=== PATIENT | female | born 1995 | race Caucasian/White ===

== ENCOUNTER 2019-11-19 22:22 | Inpatient (IN) | payer MEDICAID, OTHER ==
[~2019-11-19] VITALS: Ht 152.4 cm; Wt 51.3 kg
[~2019-11-19 22:22] MED LIST: IBUP-2070 PO; PRED20 PO; VALA500T42 PO
[2019-11-19] MEDS ORDERED: TRAZ-184 PO (23:06)
[2019-11-19] MEDS ORDERED: DIPH25CA85 PO (23:06)
[2019-11-20 00:45] LABS: BASOPHILS % (AUTO) 0.9 % (0.0-2.0); HEMATOCRIT 40.3 % (36-46); HEMOGLOBIN 12.8 g/dL (12.0-16.0); LYMPHOCYTES # (AUTO) 2.2 K/uL (1.0-4.8); LYMPHOCYTES % (AUTO) 26.9 % (22.0-44.0); MEAN CORPUSCULAR HEMOGLOBIN 24.7 pg (26.0-34.0); MEAN CORPUSCULAR HGB CONC 31.8 G/dL (31.0-37.0); MEAN CORPUSCULAR VOLUME 78 fL (80-100); MONOCYTES # (AUTO) 0.5 K/uL (0.1-1.0); MONOCYTES % (AUTO) 5.5 % (2.0-9.0); NEUTROPHILS # (AUTO) 5.3 K/uL (1.8-7.7); NEUTROPHILS % (AUTO) 63.7 % (40.0-70.0); PLATELET COUNT (AUTO) 333 K/uL (150-450); RED BLOOD CELL COUNT(AUTO) 5.19 MIL/uL (4.00-5.20); RED CELL DISTRIBUTION WIDTH 14.3 % (11.5-14.5)
[2019-11-20] MEDS ORDERED: SODIUM CHLORIDE 0.9% 1,000 ML IV ONE (00:45)
[2019-11-20 00:54] LABS: ANION GAP 6 mmol/L (8-16); CALCIUM, TOTAL 8.7 mg/dL (8.8-10.5); CARBON DIOXIDE 30 mmol/L (22-29); CHLORIDE 104 mmol/L (98-107); CREATININE 0.86 mg/dL (0.60-1.30); GLOMERULAR FILTR. RATE CALC > 60 mL/min (>60); GLUCOSE,RANDOM 90 mg/dL (70-110); POTASSIUM 3.6 mmol/L (3.5-5.1); SODIUM SERUM 140 mmol/L (136-145); UREA NITROGEN, BLOOD 9 mg/dL (7-18)
[2019-11-20 01:01] LABS: SALICYLATE 0.5 mg/dL (2.8-20.0)
[2019-11-20 01:06] LABS: ACETAMINOPHEN < 2 mcg/mL (10-30); ALANINE AMINOTRANSFERASE 87 U/L (12-78); ALBUMIN 3.6 g/dL (3.4-5.0); ALKALINE PHOSPHATASE 94 U/L (46-116); ASPARTATE AMINOTRANSFERASE 43 U/L (15-37); BILIRUBIN,TOTAL 0.2 mg/dL (0.1-1.0); HCG,QUANTITATIVE < 1 mIU/mL (0-6); TOTAL PROTEIN, SERUM 7.5 g/dL (6.4-8.2)
[2019-11-20] MEDS ORDERED: ZOLPIDEM TARTRATE 10 MG TABLET PO PRN (05:00)
[2019-11-20] MEDS ORDERED: HALOPERIDOL 5 MG TABLET PO PRN (05:00)
[2019-11-20] MEDS ORDERED: LORazepam 2 MG TABLET PO PRN (05:00)
[2019-11-20] MEDS ORDERED: ACETAMINOPHEN 325 MG TABLET PO PRN (08:00)
[2019-11-20] MEDS ORDERED: ALBUTEROL SULFATE HFA 90 MCG/PUFF 8 GM INHALER IH PRN (08:00)
[2019-11-20] MEDS ORDERED: MAGNESIUM HYDROXIDE SUSPENSION 30 ML UDCUP PO PRN (08:00)
[2019-11-20] MEDS ORDERED: ONDANSETRON HCL 4 MG TABLET PO PRN (08:00)
[2019-11-20] MEDS ORDERED: PETROLATUM,WHITE 28 GM JELLY TP PRN (08:00)
[2019-11-20] MEDS ORDERED: LOPERAMIDE HCL 2 MG CAPSULE PO PRN (08:00)
[2019-11-20] MEDS ORDERED: MAG HYDROX/AL HYDROX/SIMETH ES 30 ML SUSPENSION UDCUP PO PRN (08:00)
[2019-11-20] MEDS ORDERED: CloNIDine HCL 0.1 MG TABLET PO PRN (08:00)
[2019-11-20] MEDS ORDERED: IBUPROFEN 400 MG TABLET PO PRN (08:00)
[2019-11-20] MEDS ORDERED: DOCUSATE SODIUM 100 MG CAPSULE PO PRN (08:00)
[2019-11-20] MEDS ORDERED: NICOTINE 14 MG/24 HOUR PATCH TD PRN (08:00)
[2019-11-20 19:44] VITALS: BP 105/74
[2019-11-20] MEDS: TraZODone HCL 50 MG TABLET PO SCH (20:45)
[2019-11-21 06:40] VITALS: BP 104/62
[2019-11-21 07:00] LABS: CHOL/HDL RATIO 3.6 (3.9-5.7)
[2019-11-21] MEDS: SERTRALINE HCL 100 MG TABLET PO SCH (08:47)
[2019-11-21 08:53] VITALS: BP 107/69
[2019-11-21 16:09] VITALS: BP 115/54
[2019-11-21] MEDS: TraZODone HCL 50 MG TABLET PO SCH (20:12)
[2019-11-22 06:30] VITALS: BP 110/61
[2019-11-22 08:38] VITALS: BP 106/60
[2019-11-22] MEDS: SERTRALINE HCL 100 MG TABLET PO SCH (09:22)
[2019-11-22 17:05] VITALS: BP 105/82
[2019-11-22] MEDS: GuaiFENesin/D-METHORPHAN [SUGAR-FREE] 200-20MG/10 ML SYRUP UDCUP PO PRN (18:17)
[2019-11-22] MEDS: TraZODone HCL 50 MG TABLET PO SCH (21:00)
[2019-11-23 00:20] VITALS: BP 110/80
[2019-11-23] MEDS: GuaiFENesin/D-METHORPHAN [SUGAR-FREE] 200-20MG/10 ML SYRUP UDCUP PO PRN (07:09)
[2019-11-23 08:20] VITALS: BP 122/66
[2019-11-23] MEDS: SERTRALINE HCL 100 MG TABLET PO SCH (08:39)
[2019-11-23] MEDS ORDERED: TRAZ150 PO (12:04)
[2019-11-23] MEDS ORDERED: SERT100T12 PO (12:04)
[2019-11-23 17:47] VITALS: BP 124/77
== END 2019-11-23 18:23 | disposition home or self-care (01) | DRG 752 ==
LOC: EMS 22:23 → B2S 11-20 05:00
PROVIDERS: ADMIT Psychiatry & Neurology Psychiatry; ATTEND Psychiatry & Neurology Child & Adolescent Psychiatry
DX: F60.3 Borderline personality disorder (principal); F32.2 Major depressive disorder, single episode, severe without psychotic features; F19.10 Other psychoactive substance abuse, uncomplicated; F41.9 Anxiety disorder, unspecified; Z62.810 Personal history of physical and sexual abuse in childhood; R45.87 Impulsiveness; T50.992A Poisoning by other drugs, medicaments and biological substances, intentional self-harm, initial encounter; R74.0 Nonspecific elevation of levels of transaminase and lactic acid dehydrogenase [LDH]; Y92.89 Other specified places as the place of occurrence of the external cause; Z79.899 Other long term (current) drug therapy; Z91.040 Latex allergy status; Z71.51 Drug abuse counseling and surveillance of drug abuser
CPT/HCPCS: 51701; 93005; G0480; G0481; J7030

== ENCOUNTER 2019-12-09 21:17 | Inpatient (IN) | payer MEDICAID ==
[~2019-12-09] VITALS: Ht 154.9 cm; Wt 121.7 kg
[~2019-12-09 21:17] MED LIST changes: -IBUP-2070 PO; -PRED20 PO; +SERT100T12 PO; +TRAZ150 PO; -VALA500T42 PO
[2019-12-09] MEDS ORDERED: HALOPERIDOL 5 MG TABLET PO PRN (21:45)
[2019-12-09 22:09] VITALS: BP 98/61
[2019-12-10] VITALS: BP 118/80
[2019-12-10 07:58] LABS: BASOPHILS % (AUTO) 0.4 % (0.0-2.0); EOSINOPHILS % (AUTO) 4.2 % (1.0-6.0); HEMATOCRIT 39.9 % (36-46); HEMOGLOBIN 12.9 g/dL (12.0-16.0); LYMPHOCYTES # (AUTO) 1.5 K/uL (1.0-4.8); LYMPHOCYTES % (AUTO) 18.1 % (22.0-44.0); MEAN CORPUSCULAR HEMOGLOBIN 25.3 pg (26.0-34.0); MEAN CORPUSCULAR HGB CONC 32.4 G/dL (31.0-37.0); MEAN CORPUSCULAR VOLUME 78 fL (80-100); MONOCYTES # (AUTO) 0.4 K/uL (0.1-1.0); MONOCYTES % (AUTO) 5.1 % (2.0-9.0); NEUTROPHILS % (AUTO) 72.2 % (40.0-70.0); PLATELET COUNT (AUTO) 350 K/uL (150-450); RED BLOOD CELL COUNT(AUTO) 5.12 MIL/uL (4.00-5.20); RED CELL DISTRIBUTION WIDTH 14.7 % (11.5-14.5)
[2019-12-10 08:30] VITALS: BP 125/64
[2019-12-10 08:45] LABS: HEMOGLOBIN A1C 6.3 % (3.8-5.6)
[2019-12-10 08:51] LABS: ALANINE AMINOTRANSFERASE 80 U/L (12-78); ALBUMIN 3.4 g/dL (3.4-5.0); ALKALINE PHOSPHATASE 104 U/L (46-116); ANION GAP 8 mmol/L (8-16); ASPARTATE AMINOTRANSFERASE 34 U/L (15-37); BILIRUBIN,TOTAL 0.2 mg/dL (0.1-1.0); CALCIUM, TOTAL 9.4 mg/dL (8.8-10.5); CARBON DIOXIDE 27 mmol/L (22-29); CHLORIDE 104 mmol/L (98-107); CHOL/HDL RATIO 3.8 (3.9-5.7); CHOLESTEROL 139 mg/dL (131-200); CREATININE 0.74 mg/dL (0.60-1.30); FREE T4 (FREE THYROXINE) 1.41 ng/dL (0.76-1.46); GLOMERULAR FILTR. RATE CALC > 60 mL/min (>60); GLUCOSE,RANDOM 106 mg/dL (70-110); HCG,QUANTITATIVE < 1 mIU/mL (0-6); HDL CHOLESTEROL 37 mg/dL (40-60); LDL CHOL (CALC.) 82 mg/dL (0-130); POTASSIUM 3.9 mmol/L (3.5-5.1); SODIUM SERUM 139 mmol/L (136-145); THYROID STIMULATING HORMONE 1.04 uIU/mL (0.36-3.74); TOTAL PROTEIN, SERUM 7.5 g/dL (6.4-8.2); TRIGLYCERIDES 100 mg/dL (15-150); UREA NITROGEN, BLOOD 11 mg/dL (7-18)
[2019-12-10] MEDS: SERTRALINE HCL 100 MG TABLET PO SCH (10:21)
[2019-12-10] MEDS ORDERED: NICOTINE 14 MG/24 HOUR PATCH TD PRN (15:00)
[2019-12-10] MEDS ORDERED: CloNIDine HCL 0.1 MG TABLET PO PRN (15:00)
[2019-12-10] MEDS ORDERED: IBUPROFEN 400 MG TABLET PO PRN (15:00)
[2019-12-10] MEDS ORDERED: MAGNESIUM HYDROXIDE SUSPENSION 30 ML UDCUP PO PRN (15:00)
[2019-12-10] MEDS ORDERED: ONDANSETRON HCL 4 MG TABLET PO PRN (15:00)
[2019-12-10] MEDS ORDERED: ALBUTEROL SULFATE HFA 90 MCG/PUFF 8 GM INHALER IH PRN (15:00)
[2019-12-10] MEDS ORDERED: ACETAMINOPHEN 325 MG TABLET PO PRN (15:00)
[2019-12-10] MEDS ORDERED: GuaiFENesin/D-METHORPHAN [SUGAR-FREE] 200-20MG/10 ML SYRUP UDCUP PO PRN (15:00)
[2019-12-10] MEDS ORDERED: LOPERAMIDE HCL 2 MG CAPSULE PO PRN (15:00)
[2019-12-10] MEDS ORDERED: PETROLATUM,WHITE 28 GM JELLY TP PRN (15:00)
[2019-12-10] MEDS ORDERED: DOCUSATE SODIUM 100 MG CAPSULE PO PRN (15:00)
[2019-12-10] MEDS ORDERED: MAG HYDROX/AL HYDROX/SIMETH ES 30 ML SUSPENSION UDCUP PO PRN (15:00)
[2019-12-10 16:17] VITALS: BP 119/69
[2019-12-10] MEDS: TraZODone HCL 50 MG TABLET PO SCH (22:01)
[2019-12-11 05:46] VITALS: BP 112/60
[2019-12-11 08:18] VITALS: BP 108/57
[2019-12-11] MEDS: SERTRALINE HCL 100 MG TABLET PO SCH (08:49)
[2019-12-11 16:37] VITALS: BP 120/77
[2019-12-11] MEDS: LORazepam 2 MG TABLET PO PRN (19:05)
[2019-12-11] MEDS: TraZODone HCL 50 MG TABLET PO SCH (20:35)
[2019-12-12 05:31] VITALS: BP 105/66
[2019-12-12 08:00] VITALS: BP 114/80
[2019-12-12] MEDS: SERTRALINE HCL 100 MG TABLET PO SCH (08:19)
[2019-12-12] MEDS: LORazepam 2 MG TABLET PO PRN ×2 (11:50→16:13)
[2019-12-12 16:13] VITALS: BP 111/68
[2019-12-12] MEDS: RisperiDONE 1 MG TABLET PO SCH (20:05)
[2019-12-12] MEDS: TraZODone HCL 50 MG TABLET PO SCH (20:05)
[2019-12-12] MEDS ORDERED: RISP.5 PO (20:35)
[2019-12-13 05:05] VITALS: BP 101/60
[2019-12-13] MEDS: LORazepam 2 MG TABLET PO PRN ×3 (08:18→17:19)
[2019-12-13] MEDS: SERTRALINE HCL 100 MG TABLET PO SCH (08:18)
[2019-12-13 08:33] VITALS: BP 104/63
[2019-12-13 16:15] VITALS: BP 102/60
[2019-12-13] MEDS: RisperiDONE 1 MG TABLET PO SCH (20:05)
[2019-12-13] MEDS: TraZODone HCL 50 MG TABLET PO SCH (20:06)
[2019-12-14 04:54] VITALS: BP 101/62
[2019-12-14 08:32] VITALS: BP 116/66
[2019-12-14] MEDS: SERTRALINE HCL 100 MG TABLET PO SCH (09:27)
[2019-12-14] MEDS: LORazepam 2 MG TABLET PO PRN (12:47)
[2019-12-14 17:00] VITALS: BP 103/63
[2019-12-14] MEDS: RisperiDONE 1 MG TABLET PO SCH (20:19)
[2019-12-14] MEDS: TraZODone HCL 50 MG TABLET PO SCH (20:19)
[2019-12-15 05:13] VITALS: BP 120/76
[2019-12-15 08:11] VITALS: BP 123/74
[2019-12-15] MEDS: SERTRALINE HCL 100 MG TABLET PO SCH (08:21)
[2019-12-15] MEDS: LORazepam 2 MG TABLET PO PRN ×2 (13:13→18:33)
[2019-12-15 16:04] VITALS: BP 109/69
[2019-12-15] MEDS: TraZODone HCL 50 MG TABLET PO SCH (20:00)
[2019-12-15] MEDS: RisperiDONE 1 MG TABLET PO SCH (20:00)
[2019-12-15] MEDS: ZOLPIDEM TARTRATE 10 MG TABLET PO PRN (20:03)
[2019-12-16 05:09] VITALS: BP 133/79
[2019-12-16 08:11] VITALS: BP 109/83
[2019-12-16] MEDS: SERTRALINE HCL 100 MG TABLET PO SCH (09:21)
[2019-12-16] MEDS: ARIPiprazole 5 MG TABLET PO SCH (10:10)
[2019-12-16 16:04] VITALS: BP 104/79
[2019-12-16] MEDS: LORazepam 2 MG TABLET PO PRN (17:21)
[2019-12-16] MEDS: RisperiDONE 1 MG TABLET PO SCH (21:20)
[2019-12-16] MEDS: TraZODone HCL 150 MG TABLET PO SCH (21:20)
[2019-12-17 03:44] VITALS: BP 100/72
[2019-12-17 08:24] VITALS: BP 109/66
[2019-12-17] MEDS: ARIPiprazole 5 MG TABLET PO SCH (08:26)
[2019-12-17] MEDS: SERTRALINE HCL 100 MG TABLET PO SCH (08:26)
[2019-12-17 16:04] VITALS: BP 135/69
[2019-12-17] MEDS: LORazepam 2 MG TABLET PO PRN (17:41)
[2019-12-17] MEDS: TraZODone HCL 150 MG TABLET PO SCH (20:25)
[2019-12-17] MEDS: RisperiDONE 1 MG TABLET PO SCH (20:26)
[2019-12-17] MEDS: ZOLPIDEM TARTRATE 10 MG TABLET PO PRN (22:19)
[2019-12-18 05:40] VITALS: BP 101/59
[2019-12-18 08:13] VITALS: BP 103/62
[2019-12-18] MEDS: ARIPiprazole 5 MG TABLET PO SCH (08:15)
[2019-12-18] MEDS: SERTRALINE HCL 100 MG TABLET PO SCH (08:15)
[2019-12-18] MEDS: LORazepam 2 MG TABLET PO PRN ×2 (15:02→19:24)
[2019-12-18 16:12] VITALS: BP 134/79
[2019-12-18] MEDS: ZOLPIDEM TARTRATE 10 MG TABLET PO PRN (20:58)
[2019-12-18] MEDS: TraZODone HCL 150 MG TABLET PO SCH (20:58)
[2019-12-18] MEDS: RisperiDONE 1 MG TABLET PO SCH (20:58)
[2019-12-19 06:39] VITALS: BP 101/71
[2019-12-19 08:29] VITALS: BP 115/66
[2019-12-19] MEDS: ARIPiprazole 5 MG TABLET PO SCH (08:49)
[2019-12-19] MEDS: SERTRALINE HCL 100 MG TABLET PO SCH (08:49)
[2019-12-19] MEDS: LORazepam 2 MG TABLET PO PRN (11:18)
[2019-12-19] MEDS ORDERED: ARIP5TAB8 PO (12:49)
== END 2019-12-19 16:10 | disposition home or self-care (01) | DRG 751 ==
LOC: B2S 21:46 → B3A 12-10 00:54
PROVIDERS: ADMIT Psychiatry & Neurology Child & Adolescent Psychiatry; ATTEND Psychiatry & Neurology Child & Adolescent Psychiatry
DX: F33.3 Major depressive disorder, recurrent, severe with psychotic symptoms (principal); Z68.43 Body mass index [BMI] 50.0-59.9, adult; E66.9 Obesity, unspecified; F10.10 Alcohol abuse, uncomplicated; F19.10 Other psychoactive substance abuse, uncomplicated; R00.0 Tachycardia, unspecified; R74.0 Nonspecific elevation of levels of transaminase and lactic acid dehydrogenase [LDH]; Z91.5 Personal history of self-harm; Z71.41 Alcohol abuse counseling and surveillance of alcoholic; Z71.51 Drug abuse counseling and surveillance of drug abuser
CPT/HCPCS: 83036; 84439; 84443; 87081